=== PATIENT | male | born 1950 | race Caucasian/White ===

== ENCOUNTER 2017-02-06 09:38 | Inpatient (IN) | payer OTHER ==
[2017-01-29 11:42] VITALS: BP 134/86
[~2017-02-06] VITALS: Ht 182.9 cm; Wt 95.3 kg
[~2017-02-06 09:38] MED LIST: ACET-709 PO; ACET1TAB64 PO; ACET650S21 PO; ASPI-496 PO; CEPH-368 PO; CHOL100012 PO; FENO48TA5 PO; FLAX1000 PO; FLUT16SP NAS; GEMF600T3 PO; IRON SUPPLEMENT PO; IRON18TA PO; LISI1TAB7 PO; MULT-377 PO; NAPR-850 PO; OXYC-307 PO; OXYC5CAP2 PO; PANT40TA5 PO; SERT50TA5 PO; SIMV20TA3 PO; SULF1TAB24 PO; TRANEXAMIC ACID 100 MG/ML, 10ML ONE; TRAZ150T62 PO
[2017-02-06] MEDS ORDERED: LIDOCAINE 1%, 2ML ONE (10:34)
[2017-02-06] MEDS ORDERED: DEXAMETHASONE 4 MG/ML, 1ML ONE (10:36)
[2017-02-06] MEDS ORDERED: CEFAZOLIN 1,000 MG ONE (10:36)
[2017-02-06] MEDS ORDERED: MIDAZOLAM 1 MG/ML, 2ML ONE ×2 (10:36→15:19)
[2017-02-06] MEDS ORDERED: FENTANYL PF 100 MCG/2ML ONE ×4 (10:36→15:19)
[2017-02-06] MEDS ORDERED: LIDOCAINE-MPF 2% ,5ML ONE (10:36)
[2017-02-06] MEDS ORDERED: ONDANSETRON 2MG/ML, 2ML ONE (10:36)
[2017-02-06] MEDS ORDERED: SUCCINYLCHOLINE 20 MG/ML, 10ML ONE (10:36)
[2017-02-06] MEDS ORDERED: PROPOFOL 10 MG/ML, 20ML ONE (10:36)
[2017-02-06] MEDS ORDERED: ROPIvacaine/PF 0.5%, 30 ML ONE (10:37)
[2017-02-06] MEDS ORDERED: ROPIvacaine/PF 0.2%, 20 ML ONE (10:37)
[2017-02-06] MEDS ORDERED: VANCOMYCIN PMX 1GM/200ML 200 ML IV STA (10:38)
[2017-02-06] MEDS ORDERED: MUPI15CR9 NAS (10:43)
[2017-02-06] MEDS ORDERED: ALBU8.5H8 INH (10:43)
[2017-02-06] MEDS ORDERED: FLUT1AER INH (10:43)
[2017-02-06] MEDS ORDERED: LACTATED RINGERS 1,000 ML IV SCH (10:45)
[2017-02-06] MEDS ORDERED: LIDOCAINE 1%, 2ML SQ PRN (11:00)
[2017-02-06] MEDS ORDERED: MAGNESIUM HYDROXIDE 8%, 30ML UDC PO PRN (12:00)
[2017-02-06] MEDS ORDERED: DIAZEPAM 5 MG TABLET PO PRN (12:00)
[2017-02-06] MEDS ORDERED: SENNA/DOCUSATE TABLET PO PRN (12:00)
[2017-02-06] MEDS ORDERED: DIPHENHYDRAMINE 50 MG CAPSULE PO PRN (12:00)
[2017-02-06] MEDS ORDERED: morphine SULFATE 10 MG/ML, 1ML IV PRN (12:00)
[2017-02-06] MEDS ORDERED: ONDANSETRON 4 MG TABLET PO PRN (12:00)
[2017-02-06] MEDS ORDERED: BISACODYL 10 MG SUPP PR PRN (12:00)
[2017-02-06] MEDS ORDERED: ASPI-650 PO (12:08)
[2017-02-06] MEDS ORDERED: LIDOCAINE GEL 2%, 5ML ONE (12:10)
[2017-02-06] MEDS ORDERED: HYDROmorphone 2 MG/ML, 1ML ONE (12:30)
[2017-02-06] MEDS ORDERED: DIAZEPAM 5 MG/ML, 2ML IVPush PRN (13:00)
[2017-02-06] MEDS ORDERED: METOCLOPRAMIDE 5 MG/ML, 2ML IV PRN (13:00)
[2017-02-06] MEDS ORDERED: LABETALOL 5MG/ML, 20ML IV PRN (13:00)
[2017-02-06] MEDS ORDERED: MIDAZOLAM 1 MG/ML, 2ML IV PRN (13:00)
[2017-02-06] MEDS ORDERED: MEPERIDINE/PF 25MG/0.5ML IVPush PRN (13:00)
[2017-02-06] MEDS ORDERED: ONDANSETRON 2MG/ML, 2ML IVPush PRN (13:00)
[2017-02-06] MEDS ORDERED: ALBUTEROL/IPRATROPIUM 2.5MG/0.5MG, 3 ML NPPB PRN (13:00)
[2017-02-06] MEDS ORDERED: LORazepam 2 MG/ML, 1ML IVPush PRN (13:00)
[2017-02-06] MEDS ORDERED: hydrALAzine 20 MG/ML, 1ML IV PRN (13:00)
[2017-02-06] MEDS ORDERED: ACETAMINOPHEN 325 MG TABLET PO PRN (13:00)
[2017-02-06] MEDS ORDERED: OXYcodone 5 MG/5 ML ORAL.SOL UDC PO PRN (13:00)
[2017-02-06] MEDS ORDERED: PROMETHAZINE 25 MG/ML, 1ML IV PRN (13:00)
[2017-02-06] MEDS ORDERED: ACETAMINOPHEN 650 MG/20.3 ML UDC ONE (13:58)
[2017-02-06] MEDS ORDERED: HYDROmorphone 1 MG/ML, 1ML ONE (13:59)
[2017-02-06] MEDS ORDERED: OXYcodone 5 MG/5 ML ORAL.SOL UDC ONE ×2 (13:59)
[2017-02-06] MEDS: HYDROmorphone 1 MG/ML, 1ML IV PRN ×2 (14:07→14:10)
[2017-02-06] MEDS: FENTANYL PF 100 MCG/2ML IV PRN ×3 (14:08→15:23)
[2017-02-06] MEDS ORDERED: DIPHENHYDRAMINE 50 MG/ML, 1ML IVPush ONE (14:30)
[2017-02-06] MEDS ORDERED: DIPHENHYDRAMINE 50 MG/ML, 1ML ONE (14:31)
[2017-02-06] MEDS: D5%-0.45% NACL 1,000 ML IV SCH (18:22)
[2017-02-06] MEDS: CEFAZOLIN PMX 2GM/50ML 50 ML IVPB SCH (18:22)
[2017-02-06] MEDS: OXYcodone/APAP 10/325MG TABLET PO SCH ×3 (18:25→22:21)
[2017-02-06 19:49] VITALS: BP 117/67
[2017-02-06] MEDS ORDERED: SIMVASTATIN 20 MG TABLET PO SCH (21:00)
[2017-02-06] MEDS ORDERED: TRAZODONE 150MG TABLET PO SCH (21:00)
[2017-02-06] MEDS: MUPIROCIN OINT 2%, 22GM NAS SCH (22:21)
[2017-02-06] MEDS: DOCUSATE 100 MG CAPSULE PO SCH (22:21)
[2017-02-06 23:40] VITALS: BP 125/78
[2017-02-07] MEDS: OXYcodone/APAP 10/325MG TABLET PO SCH ×4 (02:40→14:55)
[2017-02-07] MEDS: CEFAZOLIN PMX 2GM/50ML 50 ML IVPB SCH (02:40)
[2017-02-07 02:42] VITALS: BP 139/85
[2017-02-07] MEDS: D5%-0.45% NACL 1,000 ML IV SCH (04:15)
[2017-02-07 07:18] VITALS: BP 130/78
[2017-02-07] MEDS ORDERED: FLUTICASONE/VILANTEROL 100-25MCG/INH INH SCH (09:00)
[2017-02-07] MEDS ORDERED: FERROUS SULFATE 325 MG TABLET PO SCH (09:00)
[2017-02-07] MEDS ORDERED: PANTOPROZOLE 40MG TABLET PO SCH (09:00)
[2017-02-07] MEDS ORDERED: LISINOPRIL 20 MG TABLET PO SCH (09:00)
[2017-02-07] MEDS ORDERED: ALBUTEROL SULFATE 2.5 MG/3 ML NPPB SCH (09:00)
[2017-02-07] MEDS ORDERED: HYDROCHLOROTHIAZIDE 25 MG TABLET PO SCH (09:00)
[2017-02-07] MEDS ORDERED: FENOFIBRATE 54 MG TABLET PO SCH ×2 (09:00)
[2017-02-07] MEDS: DOCUSATE 100 MG CAPSULE PO SCH (10:07)
[2017-02-07] MEDS: MUPIROCIN OINT 2%, 22GM NAS SCH (10:16)
[2017-02-07 13:42] VITALS: BP 107/68
[2017-02-07] MEDS ORDERED: ASPIRIN 325 MG TABLET EC PO SCH (18:00)
== END 2017-02-07 18:05 | disposition home or self-care (01) | DRG 470 ==
LOC: ORIP 09:38 → 4NOR 16:40
PROVIDERS: ADMIT Orthopaedic Surgery; ATTEND Orthopaedic Surgery
PROC: 0SRD0J9 Replacement of Left Knee Joint with Synthetic Substitute, Cemented, Open Approach (ICD-10-PCS; principal; 2017-02-06 12:15)
DX: M17.12 Unilateral primary osteoarthritis, left knee (principal); J44.9 Chronic obstructive pulmonary disease, unspecified; E78.00 Pure hypercholesterolemia, unspecified; M21.062 Valgus deformity, not elsewhere classified, left knee; I10 Essential (primary) hypertension; K21.9 Gastro-esophageal reflux disease without esophagitis; Z96.612 Presence of left artificial shoulder joint; Z96.611 Presence of right artificial shoulder joint; Z90.89 Acquired absence of other organs; M21.00 Valgus deformity, not elsewhere classified, unspecified site
CPT/HCPCS: J0690; J1100; J1170; J2250; J2405; J2704; J2795; J3010; J3370; J3490; J0330; J1200; J7120

== ENCOUNTER → 2020-09-29 | Outpatient (CLI) | payer MEDICARE ==
[~2020-09-29] MED LIST changes: +ACET-1600 PO; +ALBU8.5H8 INH; +ALPR-585 PO; +ASPI-1026 PO; +FENO48TA10 PO; -FENO48TA5 PO; +FERR324T5 PO; +FLUT15.815 NAS; -FLUT16SP NAS; +FLUT16SP24 NAS; +FLUT1AER INH; +FLUT1BLS3 IH; +GEMF-31 PO; -GEMF600T3 PO; +LISI-170 PO; +LISI1TAB20 PO; -LISI1TAB7 PO; +MIRA25TA PO; -MULT-377 PO; +MULT-395 PO; +MUPI15CR9 NAS; +OMEG1CAP39 PO; -OXYC-307 PO; +OXYC-380 PO; +OXYC10TA6 PO; -PANT40TA5 PO; +PANT40TA6 PO; +PSEU120T9 PO; +SERT50TA28 PO; -SERT50TA5 PO; +SIMV20TA19 PO; -SIMV20TA3 PO; +SULF-23 PO; -SULF1TAB24 PO; -TRANEXAMIC ACID 100 MG/ML, 10ML ONE; +[UNRECOGNIZED DRUG - CODE] PO
== END | disposition home or self-care (01) ==
LOC: RAD 13:43
PROVIDERS: ATTEND Internal Medicine Infectious Disease
DX: T84.69XD Infection and inflammatory reaction due to internal fixation device of other site, subsequent encounter (principal); Z79.2 Long term (current) use of antibiotics; Y83.8 Other surgical procedures as the cause of abnormal reaction of the patient, or of later complication, without mention of misadventure at the time of the procedure
CPT/HCPCS: 36573; C1751

== ENCOUNTER → 2020-11-10 | Outpatient (CLI) | payer MEDICARE | END | disposition home or self-care (01) | LOC: STAR 13:07 | PROVIDERS: ATTEND Orthopaedic Surgery | DX: Z01.818 Encounter for other preprocedural examination (principal); M00.9 Pyogenic arthritis, unspecified; I25.2 Old myocardial infarction; R94.31 Abnormal electrocardiogram [ECG] [EKG] | CPT/HCPCS: 87081; 93005 ==